=== PATIENT | female | born 1985 | race American Indian/Alaskan Native ===

== ENCOUNTER 2017-03-08 14:53 | Emergency (ER) | payer OTHER ==
[2017-03-08 15:36] LABS: Basophils % (Auto) 0.3 % (0.0-1.8); Eosinophils % (Auto) 1.7 % (0.0-4.3); Hemoglobin 11.2 gm/dl (10.1-14.3); Mean Corpuscular HGB Conc 33 % (30-34); Mean Corpuscular Hemoglobin 26 pg (28-32); Mean Corpuscular Volume 79 fl (79-97); Platelet Count 334 K/mm3 (140-440); Red Blood Count 4.31 M/mm3 (3.65-5.03); White Blood Count 9.7 K/mm3 (4.5-11.0)
[2017-03-08 15:57] LABS: Anion Gap 16 mmol/L; Blood Urea Nitrogen 7 mg/dL (7-17); Calcium 8.6 mg/dL (8.4-10.2); Carbon Dioxide 25 mmol/L (22-30); Chloride 96.4 mmol/L (98-107); Glucose 93 mg/dL (65-100); Potassium 3.7 mmol/L (3.6-5.0); Sodium 134 mmol/L (137-145)
--- NOTE | 2017-03-08 21:56 | Emergency Department Report ---
ED Chest Pain HPI - General Chief Complaint: Chest Pain Stated Complaint: 10 WKS PREGN/CHEST PRESSURE AND BACK PAIN Time Seen by Provider: 03/08/17 20:41 Source: patient Mode of arrival: Ambulatory Limitations: No Limitations - History of Present Illness Initial Comments: 31-year-old patient presents with complaining of sternal chest pain and left lower back pain. Mid chest pain described as a pressure, constant , and ongoing 3 days. Pain rated 8/10 intensity. Worse palpation. No evening factors. Positive dyspnea on exertion reported. He denies cough or cold symptoms or fever. Patient has intermittent left lower back stabbing pain as well. She denies dysuria, hematuria, or vomiting. Patient asked me she is approximately 10 weeks . No care. This is her sixth and she has 5 children (1 twin delivery), and history of one miscarriage. Severity scale (0 -10): 4 - Related Data Previous Rx's Medication Instructions Recorded Last Taken Type Nitrofurantoin Davidson/M-Cryst 100 mg PO Q12HR #14 capsule 03/09/17 Unknown Rx [Macrobid CAP] Vit-Fe Fumar-FA [ 1 tab PO QDAY #30 tablet 03/09/17 Unknown Rx Vitamin] Allergies Allergy/AdvReac Type Severity Reaction Status Date / Time Pertussis Vaccines Allergy Anaphylaxis Verified 03/08/17 14:59 Heart Score - HEART Score History: Slightly suspicious EKG: Normal Age: < 45 Risk factors: No known risk factors Troponin: < normal limit HEART Score: 0 ED Review of Systems ROS: Stated complaint: 10 WKS PREGN/CHEST PRESSURE AND BACK PAIN Other details as noted in HPI Comment: All other systems reviewed and negative Other: Constitutional: No fevers chills Eyes: No eye pain visual changes ENT: No ear pain or throat pain Neck: Denies pain Respiratory: Denies cough wheezing Cardiovascular: Deniespalpitations, syncope GI: Denies abdominal pain, nausea, vomiting, diarrhea : Denies dysuria Musculoskeletal: as per hpi Skin: Denies rash, lesions, erythema Neurologic: Denies headache, numbness, weakness Psychiatric: Denies suicidal ideation, hallucinations ED Past Medical Hx - Past Medical History Previous Medical History?: Yes Additional medical history: anemia - Surgical History Past Surgical History?: No - Social History Smoking Status: Never Smoker Substance Use Type: None - Medications Home Medications: Home Medications Medication Instructions Recorded Confirmed Last Taken Type Nitrofurantoin Davidson/M-Cryst 100 mg PO Q12HR #14 capsule 03/09/17 Unknown Rx [Macrobid CAP] Vit-Fe Fumar-FA [ 1 tab PO QDAY #30 tablet 03/09/17 Unknown Rx Vitamin] ED Physical Exam - General Limitations: No Limitations - Other Other exam information: General: No limitations, patient is alert in no acute distress Head exam: Atraumatic, normocephalic Eyes exam: Normal appearance, pupils equal reactive to light, extraocular movements intact ENT: Moist mucous membrane, normal oropharynx Neck exam: Normal inspection, full range of motion, no meningismus nontender Respiratory exam: Clear to auscultation bilateral, no wheezes, rales, crackles Cardiovascular: Normal rate and rhythm, reproducible midsternal tenderness Abdomen: Soft, nondistended, and nontender, with normal bowel sounds, no rebound, or guarding Extremity: Full range of motion normal inspection no deformity, no calf tenderness or edema Back: Normal Inspection, full range of motion, left lower back tenderness Neurologic: Alert, oriented x3, cranial nerves intact, no motor or sensory deficit Psychiatric: normal affect, normal mood Skin: Warm, dry, intact ED Course Vital Signs 03/08/17 03/08/17 03/08/17 15:00 20:40 20:43 Temperature 98.3 F Pulse Rate 80 90 Respiratory 16 18 Rate Blood Pressure 135/79 Blood Pressure [Left] O2 Sat by Pulse 100 99 Oximetry 03/08/17 03/08/17 03/08/17 21:00 22:40 23:00 Temperature Pulse Rate 98 H 93 H 84 Respiratory 16 11 L 15 Rate Blood Pressure 113/62 123/51 111/61 Blood Pressure [Left] O2 Sat by Pulse Oximetry 03/08/17 23:57 Temperature 98.1 F Pulse Rate 87 Respiratory 14 Rate Blood Pressure Blood Pressure 99/46 [Left] O2 Sat by Pulse 99 Oximetry - Reevaluation(s) Reevaluation #1: 03/09/17 01:42 Patient developed nausea vomiting after CT requiring Zofran with improvement. Tylenol and alcohol. Also ordered 03/09/17 01:42 MICHELLE score - Michelle Score Age > 65: (0) No Aspirin use within the Past 7 Days: (0) No 3 or more CAD Risk Factors: (0) No 2 or more Angina events in past 24 hrs: (0) No Known CAD with more than 50% Stenosis: (0) No Elevated Cardiac Markers: (0) No ST Deviation Greater than 0.5mm: (0) No MICHELLE Score: 0 ED Medical Decision Making - Lab Data Result diagrams: 03/08/17 15:18 03/08/17 15:18 Lab Results 03/08/17 03/08/17 03/08/17 Range/Units 15:18 15:18 15:18 WBC 9.7 (4.5-11.0) K/mm3 RBC 4.31 (3.65-5.03) M/mm3 Hgb 11.2 (10.1-14.3) gm/dl Hct 34.0 (30.3-42.9) % MCV 79 (79-97) fl MCH 26 L (28-32) pg MCHC 33 (30-34) % RDW 17.0 H (13.2-15.2) % Plt Count 334 (140-440) K/mm3 Lymph % (Auto) 22.0 (13.4-35.0) % Davidson % (Auto) 8.0 H (0.0-7.3) % Eos % (Auto) 1.7 (0.0-4.3) % Baso % (Auto) 0.3 (0.0-1.8) % Lymph # 2.1 (1.2-5.4) K/mm3 Davidson # 0.8 (0.0-0.8) K/mm3 Eos # 0.2 (0.0-0.4) K/mm3 Baso # 0.0 (0.0-0.1) K/mm3 Seg Neutrophils % 68.0 (40.0-70.0) % Seg Neutrophils # 6.6 (1.8-7.7) K/mm3 Sodium 134 L (137-145) mmol/L Potassium 3.7 (3.6-5.0) mmol/L Chloride 96.4 L (98-107) mmol/L Carbon Dioxide 25 (22-30) mmol/L Anion Gap 16 mmol/L BUN 7 (7-17) mg/dL Creatinine 0.7 (0.7-1.2) mg/dL Estimated GFR > 60 ml/min BUN/Creatinine Ratio 10.00 % Glucose 93 (65-100) mg/dL Calcium 8.6 (8.4-10.2) mg/dL Troponin T < 0.010 (0.00-0.029) ng/mL HCG, Quant [id number] H (0-4) mIU/mL Urine Color (Yellow) Urine Turbidity (Clear) Urine pH (5.0-7.0) Ur Specific [place] (1.003-1.030) Urine Protein (Negative) mg/dL Urine Glucose (UA) (Negative) mg/dL Urine Ketones (Negative) mg/dL Urine Blood (Negative) Urine Nitrite (Negative) Urine Bilirubin (Negative) Urine Urobilinogen (<2.0) mg/dL Ur Leukocyte Esterase (Negative) Urine WBC (Auto) (0.0-6.0) /HPF Urine RBC (Auto) (0.0-6.0) /HPF U Epithel Cells (Auto) (0-13.0) /HPF Urine Mucus /HPF 03/08/17 03/08/17 03/08/17 Range/Units 17:54 20:53 21:50 WBC (4.5-11.0) K/mm3 RBC (3.65-5.03) M/mm3 Hgb (10.1-14.3) gm/dl Hct (30.3-42.9) % MCV (79-97) fl MCH (28-32) pg MCHC (30-34) % RDW (13.2-15.2) % Plt Count (140-440) K/mm3 Lymph % (Auto) (13.4-35.0) % Davidson % (Auto) (0.0-7.3) % Eos % (Auto) (0.0-4.3) % Baso % (Auto) (0.0-1.8) % Lymph # (1.2-5.4) K/mm3 Davidson # (0.0-0.8) K/mm3 Eos # (0.0-0.4) K/mm3 Baso # (0.0-0.1) K/mm3 Seg Neutrophils % (40.0-70.0) % Seg Neutrophils # (1.8-7.7) K/mm3 Sodium (137-145) mmol/L Potassium (3.6-5.0) mmol/L Chloride (98-107) mmol/L Carbon Dioxide (22-30) mmol/L Anion Gap mmol/L BUN (7-17) mg/dL Creatinine (0.7-1.2) mg/dL Estimated GFR ml/min BUN/Creatinine Ratio % Glucose (65-100) mg/dL Calcium (8.4-10.2) mg/dL Troponin T < 0.010 < 0.010 (0.00-0.029) ng/mL HCG, Quant (0-4) mIU/mL Urine Color Yellow (Yellow) Urine Turbidity Clear (Clear) Urine pH 6.0 (5.0-7.0) Ur Specific [place] 1.019 (1.003-1.030) Urine Protein <15 mg/dl (Negative) mg/dL Urine Glucose (UA) Neg (Negative) mg/dL Urine Ketones Neg (Negative) mg/dL Urine Blood Neg (Negative) Urine Nitrite Pos (Negative) Urine Bilirubin Neg (Negative) Urine Urobilinogen 2.0 (<2.0) mg/dL Ur Leukocyte Esterase Sm (Negative) Urine WBC (Auto) 3.0 (0.0-6.0) /HPF Urine RBC (Auto) 2.0 (0.0-6.0) /HPF U Epithel Cells (Auto) 7.0 (0-13.0) /HPF Urine Mucus Few /HPF - EKG Data -: EKG Interpreted by Me (sinus rate [address] elevation MA) - EKG Data 03/08/17 21:56 Repeat EKG, no ST elevation MA. - Radiology Data Radiology results: report reviewed CT angio chest: naf. Prominent subpectoral lymph nodes are seen on the left. Nonspecific. May be reactive. Consider mammogram if concern for breast pathology. Ultrasound OB: Single live IUP 9 weeks 1 day. 1.1 cm subchorionic hematoma. Complex cyst in the left ovary - Medical Decision Making Labs unremarkable. Nitrate pos urine will be treated. Chest pain is likely muscular skeletal/costochondritis is reproducible on palpation. CERTIFIED NURSE PRACTITIONER follow-up will be encouraged. - Differential Diagnosis PE, costochondritis, UTI, ectopic Critical Care Time: No Critical care attestation.: If time is entered above; I have spent that time in minutes in the direct care of this critically ill patient, excluding procedure time. ED Disposition Clinical Impression: Costochondritis, 9 weeks gestation of , Ovarian cyst, UTI (urinary tract infection) Disposition: DC- TO HOME OR SELFCARE Is pt being admited?: No Does the pt Need Aspirin: No Condition: Stable Instructions: Costochondritis (ED), Urinary Tract Infection in Women (ED), Ovarian Cyst (ED), (ED) Additional Instructions: Take Tylenol for pain. Return if symptoms worsen. Follow-up with the CERTIFIED NURSE PRACTITIONER doctor and primary care doctor. There was increased lymph node size noted to your subpectoral lymph nodes on the left. Recommended outpatient follow-up for possible mammogram. Take the copy of the CAT scan ultrasound provided to your doctors for follow-up. Prescriptions: Nitrofurantoin Davidson/M-Cryst [Macrobid CAP] 100 mg PO Q12HR #14 capsule Vit-Fe Fumar-FA [ Vitamin] 1 tab PO QDAY #30 tablet Referrals: your, strategy intern [Other] - 2-3 Days [facility] [Provider Group] - 3-5 Days (Primary care clinic) ELISHA BLANCO MD [Staff Physician] - 3-5 Days (Primary care doctor) Time of Disposition: 01:34
[2017-03-08 22:10] LABS: Bilirubin,Urine NEG (Negative); Blood,Urine NEG (Negative); Ketones,Urine NEG (Negative); Leukocyte Esterase,Urine SM (Negative); Mucus,Urine FEW /HPF; Nitrite,Urine POS (Negative); Protein,Urine <15 mg/dL mg/dL (Negative)
[2017-03-08] MEDS ORDERED: ZOFRAN IV ONE (22:29)
--- NOTE | 2017-03-08 23:25 | Cat Scan Report ---
FINAL REPORT EXAM: CT ANGIO CHEST HISTORY: cp, sob TECHNIQUE: Serial axial images through the chest during intravenous administration contrast with coronal and sagittal reconstruction and oblique MIP reconstruction PRIORS: None. FINDINGS: No focal consolidations are seen in the lungs and there are no pleural effusions. No abnormal mass is identified. There are prominent lymph nodes in the left subpectoral jaelyn station. The heart measures approximately 13.5 centimeters in length. No abnormal filling defects are identified in the pulmonary arteries. No gross abnormality is seen in the visualized portion of the abdomen. No acute osseous abnormality is identified. IMPRESSION: 1. No definite acute pulmonary embolism is identified. 2. No focal infiltrate or pleural effusion is seen.
[2017-03-08 23:59] VITALS: BP 99/46
--- NOTE | 2017-03-09 01:10 | Ultrasound Report ---
FINAL REPORT PROCEDURE: US OB LESS THAN 14 WEEKS FETUS TECHNIQUE: Real-time transabdominal sonography of the uterus, placenta, amniotic fluid, adnexa, and fetus was performed with image documentation. Measurements were obtained to determine age/size. M-mode Doppler was used to document heartbeat. HISTORY: lower back pain, +hcg COMPARISON: No prior studies are available for comparison. FINDINGS: CRL: 23.8mm, which corresponds to a gestational age of: 9weeks, 1 days. Yolk Sac: Normal. Embryonic Cardiac Activity: 190 beats per minute Gestational Sac: There is a 1.1 centimeters subchorionic hematoma. Right Ovary: Normal. Left Ovary: There is a complex cyst in the left ovary. Estimated delivery date: 10/10/2017 Comment: Complete anatomic survey at 18-20 weeks suggested. IMPRESSION: 1. Single living intrauterine gestation at approximately 9 weeks and 1 day 2. EDC by US 10/10/2017.
--- NOTE | 2017-03-09 01:10 | Ultrasound Report ---
FINAL REPORT PROCEDURE: US OB TRANSVAGINAL TECHNIQUE: Real-time transvaginal sonography of the uterus, placenta, amniotic fluid, adnexa, and fetus was performed with image documentation. Measurements were obtained to determine age/size. M-mode Doppler was used to document heartbeat. CPT 45461 HISTORY: lower back pain, +hcg COMPARISON: No prior studies are available for comparison. FINDINGS: CRL: 23.8mm, which corresponds to a gestational age of: 9weeks, 1 days. Yolk Sac: Normal. Embryonic Cardiac Activity: 190 beats per minute Gestational Sac: There is a 1.1 centimeters subchorionic hematoma. Right Ovary: Normal. Left Ovary: There is a complex cyst in the left ovary. Estimated delivery date: 10/10/2017 Comment: Complete anatomic survey at 18-20 weeks suggested. IMPRESSION: 1. Single living intrauterine gestation at approximately 9 weeks and 1 day 2. EDC by US 10/10/2017.
[2017-03-09] MEDS ORDERED: TYLENOL PO ONE (01:29)
[2017-03-09] MEDS ORDERED: MACROBID PO ONE (01:32)
== END 2017-03-09 02:21 | disposition home or self-care (01) ==
LOC: ED 14:53
DX: O23.41 Unspecified infection of urinary tract in pregnancy, first trimester (principal); O34.81 Maternal care for other abnormalities of pelvic organs, first trimester; N83.202 Unspecified ovarian cyst, left side; M94.0 Chondrocostal junction syndrome [Tietze]; D64.9 Anemia, unspecified; Z3A.09 9 weeks gestation of pregnancy; Z88.7 Allergy status to serum and vaccine
CPT/HCPCS: 36415; 71275; 76801; 76817; 80048; 81001; 84484; 84702; 85025; 93005; 93010; 96374; 99284; J2405; Q9967

== ENCOUNTER 2017-10-05 12:22 | Emergency (ER) | payer OTHER ==
[2017-10-05 14:08] VITALS: BP 119/52
== END 2017-10-05 15:00 | disposition left against medical advice (07) ==
LOC: ED 12:22
DX: R25.1 Tremor, unspecified (principal); Z53.21 Procedure and treatment not carried out due to patient leaving prior to being seen by health care provider